=== PATIENT | female | born 1945 | race Caucasian/White ===

== ENCOUNTER 2016-11-07 17:42 | Observation (INO) | payer MEDICARE, OTHER ==
--- NOTE | ~2016-11-07 | HP ---
History And Physical [place] [id number] [facility] [place]. [address] NAME: CHIP SALAZAR : 47 STATUS : ADM Katia PAT#: [id number] AGE: 71 ADM/REG DATE : 11/07/16 MR#: [id number] REPORT SERV DATE: 11/08/16 DICTATED BY: LETICIA SOTO DATE: 11/08/16 REPORT STATUS : Draft TRANSCRIBED BY: MODDariana DATE: 11/08/16 DATE OF ADMISSION: 11/07/2016 PLASTIC TOOL MAKER: Thanh Nava M.D., Ph.D, F.A.C.C. CHIEF COMPLAINT: Chest pressure. HISTORY OF PRESENT ILLNESS: A very pleasant 71-year-old white female with known history of CAD, status post CABG x5, 03/[address] Ritchie with LO to LAD, vein graft to diagonal, RYAN to OM, vein graft to PDA and PLB. The patient states that for the past two weeks she has experienced episodes of chest pressure in her central chest that radiated times to her back and her left shoulder. She describes it as persistent and "constant." She reports associated shortness of breath. Denies nausea, diaphoresis, dizziness. She does report some belching. At its most intense, she rates the chest pain a 10/10 at time of interview in the CPOU. She first said she is pain-free, but then corrected herself to 2/10. She states the episodes last hours in duration and are relatively constant. There seemingly no pattern, no clear exertional component. No association with meals. She denies any personal history of myocardial infarction, stroke, DVT, or pulmonary embolus. The patient denies any recent fever or chills. No palpitations. No syncopal episode, although she does report some dizzy spells with change of position. Denies PND or orthopnea. PAST MEDICAL HISTORY: 1. CAD. a. CABG x5, 03/2012, Dr. Ritchie with LO to LAD, vein graft to diagonal, RYAN to OM, vein graft to PDA and PLB. 2. Hypertension. 3. Dyslipidemia, statin intolerant. 4. AODM. 5. GERD. 6. Cirrhosis, followed by Dr. Byron Matthews. 7. Psoriatic and rheumatoid arthritis. 8. Positive family history for early CAD. SURGICAL HISTORY: 1. CABG x5, 03/2012. 2. Tonsillectomy. 3. Hernia repair. 4. Partial hysterectomy. 5. Endometriosis and appendectomy. 6. Right carpal tunnel. 7. Bilateral cataracts. 8. Repair of a right retinal bleed. 9. Liver biopsy. History And Physical [address] [address] NAME: CHIP SALAZAR : [birth year] STATUS : ADM Katia PAT#: [id number] AGE: 71 ADM/REG DATE : 11/07/16 MR#: [id number] REPORT SERV DATE: 11/08/16 DICTATED BY: LETICIA SOTO DATE: 11/08/16 REPORT STATUS : Draft TRANSCRIBED BY: LV DATE: 11/08/16 SOCIAL HISTORY: She is with two children. She is retired from school cafeteria. She also works part-time at [employer]. Denies tobacco, alcohol, or illicits. FAMILY HISTORY: Father with heart attack, greater than 70, at 82. Mother with rheumatoid arthritis, at 69. Brother with heart attack at 62, remains alive at 64. Sister with CAD and stents at 65, alive at 68 also with [place], stroke, and a brain tumor. REVIEW OF SYSTEMS: A 14-point review of systems performed significant for HPI. Reports home blood sugars of 120. Also reported recent symptoms to [facility] with a recent nitroglycerin called into her pharmacy. Otherwise, complete review of systems obtained and negative. ALLERGIES: ALLERGY TO STATINS, MUSCLE CRAMPS; TRAMADOL, GI; DEMEROL, VOMITING; PERCOCET, GI; NARCOTICS, GI. HOME MEDICINES: Vitamin C 500 mg daily, aspirin 81 mg daily, Lexapro 10 mg daily, iron 325 daily, Neurontin 600 mg nightly, Remicade drip every 8 weeks, Atrovent p.r.n., omega-3 capsule daily, Cozaar 25 mg daily, Glucophage 500 mg twice daily, nadolol 20 mg daily, Prilosec 40 mg daily, Zofran p.r.n., probiotic, also nitrofurantoin 100 mg for three days p.r.n. UTI. PHYSICAL EXAMINATION: VITAL SIGNS: Bilateral blood pressures on arrival, right 145/63, left 165/70, this morning 154/70; pulse 54; respirations 18; temperature 98.1; O2 saturation 96% on room air. Height 5 feet 2 inches, weight 122 pounds, BMI 22. GENERAL: Cooperative, in no apparent distress. HEENT: Pupils 2 mm, sclera nonicteric. Nares patent. Moist mucous membranes. No xanthelasma. NECK: Trachea midline, no thyromegaly. No JVD. No bruits. LYMPH: No cervical lymphadenopathy. No supraclavicular lymphadenopathy. RESPIRATORY: Unlabored respirations. Breath sounds clear bilaterally to posterior auscultation. No wheezes or rhonchi. CARDIOVASCULAR: Regular rate. No murmur, rub or gallop appreciated. Extremities without edema. Pulses 2+ bilaterally. ABDOMEN: Soft, nontender, nondistended, normal bowel sounds auscultated throughout. No organomegaly. SKIN: Warm, dry extremities. No pallor, or cyanosis. PSYCHIATRIC: Appropriate affect. Alert, oriented x3. LABORATORY DATA: Troponin less than 0.02 x3. Potassium 3.7, BUN 23, creatinine 0.96, glucose 149. Magnesium 1.8. WBC 6.3, hemoglobin 12.3, hematocrit 35.7, platelet count 79,000. EKG sinus rhythm, inferior Q-waves, anterior T-waves "(unchanged). Echo, 06/2012: EF 57%. Mild tricuspid regurgitation and trace mitral regurgitation with mild diastolic dysfunction. CTA of chest, no PE, status post CABG. History And Physical [address] [address] NAME: CHIP SALAZAR : 47 STATUS : ADM Katia PAT#: [id number] AGE: 71 ADM/REG DATE : 11/07/16 MR#: [id number] REPORT SERV DATE: 11/08/16 DICTATED BY: LETICIA SOTO DATE: 11/08/16 REPORT STATUS : Draft TRANSCRIBED BY: LV DATE: 11/08/16 ASSESSMENT AND PLAN: 1. Substernal chest pain in patient with multiple risk factors. The patient has been observed in the CPOU overnight to rule out myocardial infarction with serial enzymes and serial EKGs and held n.p.o. We will proceed with MPI today. Home if low risk, no ischemia. To follow up with her PCP and Dr. Nava as appropriate. 2. Coronary artery disease. Continue home medications. Check orthostatics. 3. Hypertension. Monitor blood pressure and continue home medications. 4. Dyslipidemia, statin intolerant. Diet and exercise discussed. 5. Adult-onset diabetes mellitus, hold metformin level 1 sliding scale correction. RAMANA/MODL Leticia Soto, MSN, RUNNING SPECIALIST-BC / [id number] CC: Leticia Soto, MSN, RUNNING SPECIALIST-BC Cory Jamison M.D., Ph.D, F.A.C.C.
[~2016-11-07 17:42] MED LIST: AMARYL2 PO; ASAB PO; COR20 PO; COZ25 PO; ENBREL50 MG/M1 SC; GLUCPH PO; JANUMET1 TAB PO; JANUVIA100 MG PO; LEXAPRO10 PO; LOP25 PO; LYRICA150 MG PO; NEUR300 PO; REMICADE IV; ZOFRAN4 PO; [UNRECOGNIZED DRUG - OTHER]
[2016-11-07 18:39] LABS: BASOPHILS 0.5 %; BASOPHILS ABSOLUTE 0.03 10/3/uL (0.0-0.16); EOSINOPHILS 7.6 %; EOSINOPHILS ABSOLUTE 0.48 10/3/uL (0.0-0.53); ER CBC TAT 0 Hrs 07 Mins; LYMPHOCYTES 27.7 %; LYMPHOCYTES ABSOLUTE 1.75 10/3/uL (0.67-4.30); MEAN CORPUSCULAR HEMOGLOB 29.9 pg (26.0-34.0); MEAN CORPUSCULAR VOLUME 86.9 fL (80-100); MEAN PLATELET VOLUME 11.5 fL (9.2-13.0); MONOCYTES 12.8 %; MONOCYTES ABSOLUTE 0.81 10/3/uL (0.21-1.20); NEUTROPHILS 51.4 %; NEUTROPHILS ABSOLUTE 3.24 10/3/uL (2.02-8.40); PLATELET COUNT 79 10/3/uL (150-400); RBC DISTRIBUTION WIDTH 13.6 % (12.0-16.0); WHITE BLOOD CELLS 6.3 10/3/uL (4.5-10.5)
[2016-11-07 18:44] LABS: HEMATOCRIT 35.7 % (36.0-48.0); HEMOGLOBIN 12.3 g/dL (12.0-16.0); MEAN CORPUS HGB CONC 34.5 g/dL (32.0-36.0); RED CELL COUNT 4.11 10/6/uL (4.0-5.6)
[2016-11-07 18:45] LABS: MANUAL DIFF NO %
[2016-11-07 18:49] LABS: INTERNATIONAL NORMAL RATI 1.1 UNITS (-); PARTIAL THROMBO TIME 27.3 SEC (22.5-37.2)
[2016-11-07 18:52] LABS: PROTIME (NOT ORD) 13.6 SEC (12.0-14.5)
[2016-11-07 18:56] LABS: CALCIUM, SERUM 10.2 MG/DL (8.5-10.4); CHEST PAIN PROFILE TAT 0 Hrs 24 Mins; CHLORIDE, SERUM 104 MMOL/L (96-112); CO2 (CARBON DIOXIDE) 28 MMOL/L (24-34); CREATININE 0.96 MG/DL (0.55-1.02); GFR AFRICAN AMERICAN 69 ML/MIN (>=60); GFR NON AFRICAN AMERICAN 60 ML/MIN (>=60); GLUCOSE, SERUM 149 MG/DL (60-99); POTASSIUM, SERUM 3.7 MMOL/L (3.5-5.3); SODIUM, SERUM 138 MMOL/L (135-148); TROPONIN I <0.02 NG/ML (<0.05)
[2016-11-07 18:57] LABS: BUN (BLOOD UREA NITROGEN) 23 MG/DL (6-23)
[2016-11-07 19:00] LABS: PLATELET ESTIMATE DEC (ADEQUATE); RBC MORPHOLOGY NORM (NORMAL)
[2016-11-07] MEDS ORDERED: PRILOSEC40 MG PO (19:42)
[2016-11-07] MEDS ORDERED: COR20 PO (19:42)
[2016-11-07] MEDS ORDERED: COZ25 PO (19:43)
[2016-11-07] MEDS ORDERED: LEXAPRO10 PO (19:43)
[2016-11-07] MEDS ORDERED: GLUCPH PO (19:43)
[2016-11-07] MEDS ORDERED: NEUR600 PO (19:43)
[2016-11-07] MEDS ORDERED: PROBIOTIC CAPSULE PO (19:44)
[2016-11-07] MEDS ORDERED: ASAB PO (19:44)
[2016-11-07] MEDS ORDERED: OMEGA-3 KRILL PO (19:45)
[2016-11-07] MEDS ORDERED: REMICADE IV (19:45)
[2016-11-07] MEDS ORDERED: ATRONASAL6 NAS (19:46)
[2016-11-07] MEDS ORDERED: ZOFRAN4 PO (19:46)
[2016-11-07] MEDS ORDERED: FERROUS SULF325 M1 PO (19:46)
[2016-11-07] MEDS ORDERED: VITC500 PO (19:46)
== END 2016-11-08 16:37 | disposition home or self-care (01) ==
LOC: ER 17:42 → CDU1 21:47
PROVIDERS: Hospitalist
DX: R07.2 Precordial pain (principal); I25.10 Atherosclerotic heart disease of native coronary artery without angina pectoris; I10 Essential (primary) hypertension; E78.5 Hyperlipidemia, unspecified; E11.9 Type 2 diabetes mellitus without complications; K21.9 Gastro-esophageal reflux disease without esophagitis; K74.60 Unspecified cirrhosis of liver; M06.9 Rheumatoid arthritis, unspecified; L40.50 Arthropathic psoriasis, unspecified; Z90.711 Acquired absence of uterus with remaining cervical stump; Z90.49 Acquired absence of other specified parts of digestive tract; Z98.890 Other specified postprocedural states; Z88.8 Allergy status to other drugs, medicaments and biological substances; Z79.82 Long term (current) use of aspirin; Z95.1 Presence of aortocoronary bypass graft; Z79.899 Other long term (current) drug therapy
CPT/HCPCS: 71020; 71275; 78452; 80048; 82962; 83735; 84484; 85025; 85610; 85730; 93005; 93017; 96374; 99285; A9270-GY; A9502; G0378; J2405; Q9967